=== PATIENT | female | born 1965 | race Caucasian/White ===

== ENCOUNTER 2021-01-07 19:01 | Inpatient (IN) ==
[2021-01-07] MEDS ORDERED: CLINDAMYCIN INJ 600 MG/50 ML PREMIX IV STA (19:30)
[2021-01-07 20:41] LABS: Basophils % 0.4 % (0.0-0.8); Eosinophils # 0.1 10*3/uL (0.0-0.87); Eosinophils % 2.3 % (0.00-10.9); Hemoglobin 12.4 GM/DL (12.0-16.0); Immature Granulocytes % 2.1 %; Lymphocytes # 1.7 10*3/uL (1.4-4.0); Lymphocytes % 35.4 % (21.3-54.2); Mean Corpuscular HGB Conc 30.2 GM/DL (32-36); Mean Corpuscular Volume 104.1 FL (87-102); Mean Platelet Volume 9.5 FL (9.6-12.0); Monocytes % 9.7 % (1.7-12.7); Neutrophils % 50.1 % (38.7-73.9); Platelet Count 158 T/CUMM (130-400); Red Blood Count 3.94 MC/CUMM (3.8-5.5); Red Cell Distribution Width 15.9 % (9.3-17.3); White Blood Count 4.7 T/CUMM (4-12)
[2021-01-07 20:50] LABS: Calcium 7.5 MG/DL (8.5-10.1); Osmolality,Calculated 284.1 MOS/KG (273-304); Potassium 3.9 MMOL/L (3.5-5.1)
[2021-01-07] MEDS ORDERED: guaiFENesin/DM ER 600-30 MG TABLET PO PRN (23:00)
[2021-01-07] MEDS ORDERED: hydrALAZINE 20 MG/1 ML VIAL IV PRN (23:00)
[2021-01-07] MEDS ORDERED: ONDANSETRON 4 MG/2 ML VIAL IV PRN (23:00)
[2021-01-07] MEDS ORDERED: ZALEPLON 5 MG CAPSULE PO PRN (23:00)
[2021-01-07] MEDS ORDERED: DEXTROSE 50% 25 GM/50 ML VIAL IV PRN (23:00)
[2021-01-07] MEDS ORDERED: BISACODYL 5 MG TABLET PO PRN (23:00)
[2021-01-07] MEDS ORDERED: ACETAMINOPHEN 325 MG TABLET PO PRN (23:00)
[2021-01-07] MEDS ORDERED: GLUCAGON 1 MG VIAL IM PRN (23:00)
[2021-01-07] MEDS ORDERED: NICOTINE 21 MG/24 HR PATCH TRANSDERM PRN (23:00)
[2021-01-07] MEDS ORDERED: diphenhydrAMINE CAP 25 MG CAPSULE PO PRN (23:00)
[2021-01-08] MEDS: CLINDAMYCIN INJ 600 MG/50 ML PREMIX IV SCH ×4 (02:09→22:00)
[2021-01-08 06:02] LABS: Alanine Aminotransferase 14 U/L (13-56); Albumin 2.4 G/DL (3.4-5.0); Alkaline Phosphatase 100 U/L (45-117); Aspartate Amino Transferase 17 U/L (0-37); Bilirubin,Total < 0.39 MG/DL (0.20-1.00); Blood Urea Nitrogen 15 MG/DL (7-18); Calcium 7.7 MG/DL (8.5-10.1); Carbon Dioxide 28 MMOL/L (21-32); Estimated Glom Filtration Rate 116 ML/MIN; Glucose 93 MG/DL (74-106); Osmolality,Calculated 281.3 MOS/KG (273-304); Potassium 3.5 MMOL/L (3.5-5.1); Sodium 141 MMOL/L (136-145); Total Protein 5.9 G/DL (6.4-8.2)
[2021-01-08 06:03] LABS: Basophils % 0.5 % (0.0-0.8); Eosinophils # 0.1 10*3/uL (0.0-0.87); Hematocrit 32.8 VOL% (35.7-47.0); Immature Granulocytes % 2.4 %; Immature Granulocytes Absolute 0.14 #; Lymphocytes # 2.2 10*3/uL (1.4-4.0); Mean Corpuscular HGB Conc 31.4 GM/DL (32-36); Mean Corpuscular Volume 104.1 FL (87-102); Mean Platelet Volume 9.6 FL (9.6-12.0); Monocytes % 10.2 % (1.7-12.7); Neutrophils % 47.9 % (38.7-73.9); Platelet Count 173 T/CUMM (130-400); Red Cell Distribution Width 16.3 % (9.3-17.3); White Blood Count 5.9 T/CUMM (4-12)
[2021-01-08 06:04] LABS: Hemoglobin 10.3 GM/DL (12.0-16.0); Red Blood Count 3.15 MC/CUMM (3.8-5.5)
[2021-01-08] MEDS: ENOXAPARIN 40 MG/0.4 ML SYRINGE SUBCUT SCH (09:24)
[2021-01-08] MEDS: ARIPiprazole 10 MG TABLET PO SCH (09:24)
[2021-01-08] MEDS: SERTRALINE 100 MG TABLET PO SCH (09:24)
[2021-01-08] MEDS: PANTOPRAZOLE 40 MG TABLET PO SCH (09:24)
[2021-01-08] MEDS: LEVOTHYROXINE 50 MCG TABLET PO SCH (09:25)
[2021-01-08] MEDS: FUROSEMIDE 40 MG TABLET PO SCH ×2 (09:25→22:01)
[2021-01-08] MEDS: POTASSIUM CHLORIDE 20 MEQ TABLET PO SCH ×4 (09:25→22:01)
[2021-01-08] MEDS: DIVALPROEX ER 500 MG TABLET PO SCH ×2 (09:25→22:01)
[2021-01-08] MEDS: OXYBUTYNIN 5 MG TABLET PO SCH (09:25)
[2021-01-08] MEDS: FERROUS SULFATE 325 MG TABLET PO SCH ×2 (09:25→22:01)
[2021-01-09] MEDS: CLINDAMYCIN INJ 600 MG/50 ML PREMIX IV SCH ×4 (02:25→20:31)
[2021-01-09 05:14] LABS: Basophils % 0.4 % (0.0-0.8); Eosinophils # 0.1 10*3/uL (0.0-0.87); Hematocrit 34.4 VOL% (35.7-47.0); Hemoglobin 10.3 GM/DL (12.0-16.0); Immature Granulocytes % 2.2 %; Immature Granulocytes Absolute 0.12 #; Lymphocytes # 2.4 10*3/uL (1.4-4.0); Lymphocytes % 43.3 % (21.3-54.2); Mean Corpuscular HGB Conc 29.9 GM/DL (32-36); Mean Corpuscular Volume 104.6 FL (87-102); Mean Platelet Volume 9.6 FL (9.6-12.0); Monocytes % 10.7 % (1.7-12.7); Neutrophils % 41.4 % (38.7-73.9); Platelet Count 192 T/CUMM (130-400); Red Blood Count 3.29 MC/CUMM (3.8-5.5); Red Cell Distribution Width 16.2 % (9.3-17.3); White Blood Count 5.5 T/CUMM (4-12)
[2021-01-09 05:56] LABS: Calcium 7.6 MG/DL (8.5-10.1); Osmolality,Calculated 280.3 MOS/KG (273-304); Potassium 4.3 MMOL/L (3.5-5.1)
[2021-01-09] MEDS: POTASSIUM CHLORIDE 20 MEQ TABLET PO SCH ×4 (09:52→20:32)
[2021-01-09] MEDS: PANTOPRAZOLE 40 MG TABLET PO SCH (09:52)
[2021-01-09] MEDS: DIVALPROEX ER 500 MG TABLET PO SCH ×2 (09:52→20:32)
[2021-01-09] MEDS: ENOXAPARIN 40 MG/0.4 ML SYRINGE SUBCUT SCH (09:52)
[2021-01-09] MEDS: ARIPiprazole 10 MG TABLET PO SCH (09:52)
[2021-01-09] MEDS: SERTRALINE 100 MG TABLET PO SCH (09:53)
[2021-01-09] MEDS: FUROSEMIDE 40 MG TABLET PO SCH ×2 (09:53→20:32)
[2021-01-09] MEDS: OXYBUTYNIN 5 MG TABLET PO SCH (09:53)
[2021-01-09] MEDS: LEVOTHYROXINE 50 MCG TABLET PO SCH (09:53)
[2021-01-09] MEDS: FERROUS SULFATE 325 MG TABLET PO SCH ×2 (09:53→20:33)
[2021-01-09] MEDS ORDERED: LIDOCAINE 1% 20 ML VIAL MISC INJ ONE (14:01)
[2021-01-09] MEDS: ZINC OXIDE PASTE 113 GM TUBE TOP SCH ×2 (16:02→20:33)
[2021-01-10] MEDS: CLINDAMYCIN INJ 600 MG/50 ML PREMIX IV SCH ×3 (02:58→14:03)
[2021-01-10 05:46] LABS: Basophils % 0.6 % (0.0-0.8); Eosinophils # 0.1 10*3/uL (0.0-0.87); Eosinophils % 1.9 % (0.00-10.9); Hematocrit 33.9 VOL% (35.7-47.0); Hemoglobin 10.3 GM/DL (12.0-16.0); Immature Granulocytes % 1.9 %; Lymphocytes # 2.4 10*3/uL (1.4-4.0); Lymphocytes % 46.6 % (21.3-54.2); Mean Corpuscular HGB Conc 30.4 GM/DL (32-36); Mean Corpuscular Volume 102.7 FL (87-102); Mean Platelet Volume 9.7 FL (9.6-12.0); Monocytes % 10.2 % (1.7-12.7); Neutrophils % 38.8 % (38.7-73.9); Platelet Count 181 T/CUMM (130-400); Red Cell Distribution Width 16.2 % (9.3-17.3); White Blood Count 5.2 T/CUMM (4-12)
[2021-01-10 06:16] LABS: Calcium 7.6 MG/DL (8.5-10.1); Osmolality,Calculated 285.8 MOS/KG (273-304); Potassium 3.9 MMOL/L (3.5-5.1)
[2021-01-10] MEDS ORDERED: LEVOTHYROXINE 75 MCG TABLET PO SCH (06:30)
[2021-01-10] MEDS: FERROUS SULFATE 325 MG TABLET PO SCH (09:09)
[2021-01-10] MEDS: ENOXAPARIN 40 MG/0.4 ML SYRINGE SUBCUT SCH (09:09)
[2021-01-10] MEDS: ZINC OXIDE PASTE 113 GM TUBE TOP SCH (09:10)
[2021-01-10] MEDS: ARIPiprazole 10 MG TABLET PO SCH (09:10)
[2021-01-10] MEDS: POTASSIUM CHLORIDE 20 MEQ TABLET PO SCH ×3 (09:10→16:05)
[2021-01-10] MEDS: PANTOPRAZOLE 40 MG TABLET PO SCH (09:10)
[2021-01-10] MEDS: DIVALPROEX ER 500 MG TABLET PO SCH (09:10)
[2021-01-10] MEDS: FUROSEMIDE 40 MG TABLET PO SCH (09:10)
[2021-01-10] MEDS: OXYBUTYNIN 5 MG TABLET PO SCH (09:10)
[2021-01-10] MEDS: SERTRALINE 100 MG TABLET PO SCH (09:10)
[2021-01-11 00:52] VITALS: BP 100/59
== END 2021-01-10 20:49 | disposition home health service (06) | DRG 602 ==
LOC: EDUNIT# → EDBD → N.ED 19:01 → N.EDINP 23:00 → N.3E 23:39
PROVIDERS: ADMIT Internal Medicine; ATTEND Internal Medicine

== ENCOUNTER 2022-06-22 01:07 | Inpatient (IN) ==
[2022-06-22] MEDS ORDERED: ETOMIDATE 20 MG/10 ML VIAL IV STA (01:27)
[2022-06-22] MEDS ORDERED: ROCURONIUM 100 MG/10 ML VIAL IV STA (01:28)
[2022-06-22] MEDS ORDERED: ADENOSINE 6 MG/2 ML VIAL ONE ×3 (01:37→01:45)
[2022-06-22] MEDS ORDERED: ADENOSINE 6 MG/2 ML VIAL IV STA ×2 (01:40→01:42)
[2022-06-22] MEDS ORDERED: SODIUM CHLORIDE 0.9% 1,000 ML IV STA ×3 (01:51→05:17)
[2022-06-22] MEDS ORDERED: cefTRIAXone 1,000 MG in SODIUM CHLORIDE 0.9% 100 ML IV STA (01:52)
[2022-06-22] MEDS ORDERED: NOREPINEPHRINE 4 MG/4 ML VIAL IV ONE ×2 (01:54→03:55)
[2022-06-22 02:01] LABS: Basophils % 0.4 % (0.0-0.8); Eosinophils % 0.1 % (0.00-10.9); Hemoglobin 11.6 GM/DL (12.0-16.0); Immature Granulocytes % 2.6 %; Immature Granulocytes Absolute 0.26 #; Lymphocytes # 2.3 10*3/uL (1.4-4.0); Lymphocytes % 23.1 % (21.3-54.2); Mean Corpuscular HGB Conc 27.8 GM/DL (32-36); Mean Corpuscular Volume 113.3 FL (87-102); Mean Platelet Volume 13.5 FL (9.6-12.0); Monocytes # 0.9 10*3/uL (0.11-0.8); Monocytes % 8.7 % (1.7-12.7); NRBC # 0.17 10*3/uL; Neutrophils % 65.1 % (38.7-73.9); Platelet Count 72 T/CUMM (130-400); Red Blood Count 3.68 MC/CUMM (3.8-5.5); Red Cell Distribution Width 16.9 % (9.3-17.3)
[2022-06-22] MEDS ORDERED: VANCOMYCIN INJ 1,000 MG in SODIUM CHLORIDE 0.9% 250 ML IV STA (02:01)
[2022-06-22] MEDS ORDERED: PIPERACILLIN/TAZOBACTAM 3,375 MG in SODIUM CHLORIDE 0.9% 100 ML IV STA (02:01)
[2022-06-22 02:05] LABS: Hematocrit 41.7 VOL% (35.7-47.0)
[2022-06-22] MEDS: NOREPINEPHRINE DRIP 8 MG/250 ML PREMIX IV PRN ×2 (02:05→03:47)
[2022-06-22 02:27] LABS: Arterial Base Excess iSTAT -12 MMOL/L (-2.5-2.5); Arterial Bicarbonate iSTAT 15.5 MMOL/L (20-26); Arterial O2 Saturation iSTAT 98 % (95-100); Arterial PCO2 iSTAT 39 MM HG (35-48); Arterial PO2 iSTAT 116 MM HG (80-95); Arterial Total CO2 iSTAT 17 MMO/L (23-27); Arterial pH iSTAT 7.207 (7.35-7.45)
[2022-06-22 02:31] LABS: Alanine Aminotransferase 223 U/L (13-56); Albumin 1.7 G/DL (3.4-5.0); Alkaline Phosphatase 99 U/L (45-117); Aspartate Amino Transferase 353 U/L (0-37); Blood Urea Nitrogen 39 MG/DL (7-18); Calcium 8.4 MG/DL (8.5-10.1); Carbon Dioxide 15 MMOL/L (21-32); Chloride 112 MMOL/L (98-107); Glucose 131 MG/DL (74-106); Osmolality,Calculated 287.5 MOS/KG (273-304); Sodium 139 MMOL/L (136-145); Total Protein 6.2 G/DL (6.4-8.2)
[2022-06-22 02:33] LABS: Potassium 6.6 MMOL/L (3.5-5.1)
[2022-06-22] MEDS ORDERED: SODIUM BICARBONATE 50 MEQ/50 ML VIAL IV STA ×2 (02:38→04:32)
[2022-06-22] MEDS ORDERED: INSULIN REGULAR 10 UNIT, CALCIUM GLUCONATE 1,000 MG in DEXTROSE 10% 250 ML IV ONE (02:38)
[2022-06-22] MEDS ORDERED: ETOMIDATE 20 MG/10 ML VIAL IV ONE (03:46)
[2022-06-22] MEDS ORDERED: DILTIAZEM 50 MG/10 ML VIAL IV STA (03:46)
[2022-06-22] MEDS ORDERED: ROCURONIUM 100 MG/10 ML VIAL IV ONE (03:47)
[2022-06-22 04:01] LABS: INR 1.7; PT Patient Result 17.7 SECS (10.1-12.1); Partial Thromboplastin Time 29.5 SECS (23.7-32.9)
[2022-06-22] MEDS ORDERED: DILTIAZEM 25 MG/5 ML VIAL IV ONE (04:26)
[2022-06-22] MEDS ORDERED: PHENYLEPHRINE DRIP 40 MG/250 ML PREMIX IV ONE (04:31)
[2022-06-22] MEDS ORDERED: DILTIAZEM 100 MG VIAL.ADD IV ONE (04:31)
[2022-06-22] MEDS ORDERED: PHENYLEPHRINE DRIP 40 MG/250 ML PREMIX IV PRN (04:44)
[2022-06-22] MEDS ORDERED: AMIODARONE INJ 150 MG in DEXTROSE 5% 100 ML IV ONE (04:54)
[2022-06-22] MEDS ORDERED: AMIODARONE 450 MG/9 ML VIAL IV ONE (04:59)
[2022-06-22] MEDS ORDERED: DILTIAZEM INJ 100 MG in SODIUM CHLORIDE 0.9% 100 ML IV SCH (05:00)
[2022-06-22] MEDS ORDERED: AMIODARONE INJ 450 MG in DEXTROSE 5% 241 ML IV SCH (05:00)
[2022-06-22] MEDS ORDERED: METOPROLOL TARTRATE 5 MG/5 ML VIAL IV STA (05:08)
[2022-06-22] MEDS ORDERED: MIDAZOLAM DRIP 100 MG/100 ML PREMIX IV PRN (05:09)
[2022-06-22] MEDS ORDERED: ONDANSETRON 4 MG/2 ML VIAL IV PRN (05:13)
[2022-06-22] MEDS ORDERED: ALBUTEROL 2.5 MG/3 ML NEB RESP TX PRN (05:13)
[2022-06-22] MEDS ORDERED: ALBUMIN 25% 25 GM/100 ML VIAL IV ONE (05:19)
[2022-06-22] MEDS ORDERED: MIDAZOLAM 10 MG/2 ML VIAL IV STA (05:22)
[2022-06-22] MEDS ORDERED: MIDAZOLAM 10 MG/2 ML VIAL ONE (05:22)
[2022-06-22] MEDS ORDERED: SODIUM CHLORIDE 0.9% 1,000 ML IV SCH ×2 (05:30→07:30)
[2022-06-22 05:34] LABS: Amorphous Crystals,Urine Moderate /HPF (Few); Bacteria,Urine Many /HPF (Few); Mucus,Urine Many /LPF (Occasional); RBC,Urine 12 /HPF (0-4)
[2022-06-22 05:35] LABS: Bilirubin,Urine Moderate mg/dL (Negative); Blood, Urine Trace mg/dL (Negative); Glucose,Urine (UA) Negative (Negative); Ketones,Urine Trace mg/dL (Negative); Nitrite,Urine Negative (Negative); Protein,Urine >=300 mg/dL (Negative); Urine Appearance Cloudy (Clear); Urine Color Amber (Yellow)
[2022-06-22] MEDS ORDERED: levETIRAcetam 500 MG/5 ML VIAL IV ONE (05:42)
[2022-06-22 05:52] LABS: Albumin 1.8 G/DL (3.4-5.0); Bilirubin,Total 0.9 MG/DL (0.20-1.00); Calcium 7.7 MG/DL (8.5-10.1); Potassium 3.3 MMOL/L (3.5-5.1)
[2022-06-22] MEDS ORDERED: levETIRAcetam 500 MG/5 ML VIAL IV STA (05:54)
[2022-06-22 06:13] LABS: ABG Base Excess -5.3 MMOL/L (-2.5-2.5); ABG HCO3 20.1 MMOL/L (20-26); ABG PCO2 39.4 MM HG (35-48); ABG PH 7.322 (7.35-7.45); ABG TCO2 18.9 MMOL/L (23-27)
[2022-06-22] MEDS ORDERED: SODIUM CHLORIDE 0.45% 1,000 ML IV SCH (06:30)
[2022-06-22] MEDS: ACETAMINOPHEN 325 MG TABLET PO PRN (07:00)
[2022-06-22] MEDS ORDERED: ALBUTEROL/IPRATROPIUM 3 ML NEB RESP TX SCH (07:00)
[2022-06-22 07:09] VITALS: BP 146/59
[2022-06-22 07:11] LABS: ABG HCO3 21.1 MMOL/L (20-26); ABG Oxygen Saturation 99.2 % (95-100); ABG PCO2 31.7 MM HG (35-48); ABG PH 7.406 (7.35-7.45)
[2022-06-22 07:25] LABS: Calcium 7.6 MG/DL (8.5-10.1); Osmolality,Calculated 303.6 MOS/KG (273-304); Potassium 3.1 MMOL/L (3.5-5.1)
[2022-06-22] MEDS ORDERED: PHENYLEPHRINE INJ 160 MG in SODIUM CHLORIDE 0.9% 234 ML IV PRN (07:30)
[2022-06-22] MEDS ORDERED: NOREPINEPHRINE 16 MG in SODIUM CHLORIDE 0.9% 234 ML IV PRN (07:30)
[2022-06-22] MEDS ORDERED: MEROPENEM 500 MG in SODIUM CHLORIDE 0.9% 100 ML IV SCH (08:00)
[2022-06-22] MEDS ORDERED: ACETYLCYSTEINE 600 MG CAPSULE PO SCH (08:00)
[2022-06-22] MEDS ORDERED: MORPHINE 2 MG/1 ML SYRINGE ONE (08:01)
[2022-06-22] MEDS ORDERED: LORazepam 2 MG/1 ML VIAL ONE ×3 (08:09→12:53)
[2022-06-22] MEDS: LORazepam 2 MG/1 ML VIAL IV PRN ×4 (08:13→20:18)
[2022-06-22] MEDS: MORPHINE 2 MG/1 ML SYRINGE IV PRN ×5 (08:14→20:21)
[2022-06-22] MEDS ORDERED: FAMOTIDINE 20 MG/2 ML VIAL IV SCH (09:00)
[2022-06-22] MEDS ORDERED: VANCOMYCIN INJ 1,000 MG in SODIUM CHLORIDE 0.9% 250 ML IV SCH (10:30)
[2022-06-22] MEDS ORDERED: PIPERACILLIN/TAZOBACTAM 3,375 MG in SODIUM CHLORIDE 0.9% 100 ML IV SCH (12:00)
[2022-06-22] MEDS ORDERED: VANCOMYCIN INJ 2,000 MG in SODIUM CHLORIDE 0.9% 500 ML IV SCH (16:00)
[2022-06-23] MEDS: LORazepam 2 MG/1 ML VIAL IV PRN ×3 (00:13→20:02)
[2022-06-23] MEDS: MORPHINE 2 MG/1 ML SYRINGE IV PRN ×5 (00:15→22:11)
[2022-06-23] MEDS ORDERED: ACETAMINOPHEN 650 MG SUPP RECTAL PRN (10:33)
[2022-06-23] MEDS ORDERED: LEVOFLOXACIN INJ 750 MG/150 ML PREMIX IV SCH (11:00)
[2022-06-23] MEDS: ACETAMINOPHEN 325 MG TABLET PO PRN (22:10)
[2022-06-24] MEDS: MORPHINE 2 MG/1 ML SYRINGE IV PRN ×4 (01:55→23:43)
[2022-06-24 04:36] LABS: Bilirubin,Total 0.7 MG/DL (0.20-1.00); Calcium 7.4 MG/DL (8.5-10.1); Osmolality,Calculated 308.1 MOS/KG (273-304); Potassium 3.7 MMOL/L (3.5-5.1); Total Protein 5.3 G/DL (6.4-8.2)
[2022-06-24 04:44] LABS: Basophils % 0.4 % (0.0-0.8); Eosinophils % 0.3 % (0.00-10.9); Hematocrit 27.6 VOL% (35.7-47.0); Hemoglobin 8.2 GM/DL (12.0-16.0); Immature Granulocytes Absolute 0.21 #; Lymphocytes # 2.1 10*3/uL (1.4-4.0); Lymphocytes % 29.3 % (21.3-54.2); Mean Corpuscular HGB Conc 29.7 GM/DL (32-36); Mean Corpuscular Volume 105.7 FL (87-102); Mean Platelet Volume 13.4 FL (9.6-12.0); Monocytes # 0.4 10*3/uL (0.11-0.8); Monocytes % 5.8 % (1.7-12.7); Neutrophils % 61.2 % (38.7-73.9); Platelet Count 91 T/CUMM (130-400); Red Blood Count 2.61 MC/CUMM (3.8-5.5); Red Cell Distribution Width 17.1 % (9.3-17.3); White Blood Count 7.1 T/CUMM (4-12)
[2022-06-24 05:40] LABS: Hypochromia Slight; Platelet Estimate Decreased
[2022-06-24] MEDS: ZINC OXIDE PASTE 113 GM TUBE TOP PRN (13:45)
[2022-06-24] MEDS ORDERED: FUROSEMIDE 40 MG/4 ML VIAL ONE (14:14)
[2022-06-24] MEDS ORDERED: FUROSEMIDE 40 MG/4 ML VIAL IV ONE (14:17)
[2022-06-24] MEDS: LORazepam 2 MG/1 ML VIAL IV PRN (22:40)
[2022-06-25] MEDS: MORPHINE 2 MG/1 ML SYRINGE IV PRN ×14 (03:17→23:10)
[2022-06-25 05:07] LABS: Phosphorous 2.2 MG/DL (2.5-4.9)
[2022-06-25 08:08] LABS: Albumin 2.2 G/DL (3.4-5.0); Bilirubin,Total 0.7 MG/DL (0.20-1.00); Calcium 7.5 MG/DL (8.5-10.1); Osmolality,Calculated 308.1 MOS/KG (273-304); Potassium 3.9 MMOL/L (3.5-5.1); Total Protein 5.2 G/DL (6.4-8.2)
[2022-06-25 08:20] LABS: Basophils # 0.1 10*3/uL (0.0-0.2); Basophils % 1.5 % (0.0-0.8); Eosinophils # 0.2 10*3/uL (0.0-0.87); Hematocrit 29.4 VOL% (35.7-47.0); Immature Granulocytes % 4.1 %; Immature Granulocytes Absolute 0.25 #; Lymphocytes # 1.7 10*3/uL (1.4-4.0); Lymphocytes % 28.5 % (21.3-54.2); Mean Corpuscular HGB Conc 28.6 GM/DL (32-36); Mean Corpuscular Volume 108.5 FL (87-102); Mean Platelet Volume 13.3 FL (9.6-12.0); Monocytes # 0.3 10*3/uL (0.11-0.8); Monocytes % 5.3 % (1.7-12.7); NRBC # 0.02 10*3/uL; Neutrophils % 57.6 % (38.7-73.9); Red Blood Count 2.71 MC/CUMM (3.8-5.5); Red Cell Distribution Width 16.7 % (9.3-17.3); White Blood Count 6.1 T/CUMM (4-12)
[2022-06-25 08:21] LABS: Hemoglobin 8.4 GM/DL (12.0-16.0); Platelet Count 126 T/CUMM (130-400)
[2022-06-25] MEDS: LEVOFLOXACIN INJ 750 MG/150 ML PREMIX IV SCH (08:45)
[2022-06-25] MEDS: ACETAMINOPHEN 325 MG TABLET PO PRN ×2 (09:41→23:48)
[2022-06-25] MEDS ORDERED: ALBUTEROL/IPRATROPIUM 3 ML NEB RESP TX SCH (13:00)
[2022-06-25] MEDS: LORazepam 2 MG/1 ML VIAL IV PRN ×5 (18:14→23:10)
[2022-06-26] MEDS: MORPHINE 2 MG/1 ML SYRINGE IV PRN ×11 (00:55→23:02)
[2022-06-26] MEDS: LORazepam 2 MG/1 ML VIAL IV PRN ×10 (00:55→23:02)
[2022-06-26] MEDS: LEVOFLOXACIN INJ 750 MG/150 ML PREMIX IV SCH (08:52)
[2022-06-26] MEDS ORDERED: fentaNYL 25 MCG/HR PATCH TRANSDERM SCH (09:00)
[2022-06-26] MEDS: ACETAMINOPHEN 325 MG TABLET PO PRN (09:10)
[2022-06-26] MEDS: ZINC OXIDE PASTE 113 GM TUBE TOP PRN (10:37)
[2022-06-26] MEDS ORDERED: LORazepam 2 MG/1 ML VIAL ONE ×2 (20:27→22:57)
[2022-06-27] MEDS: MORPHINE 2 MG/1 ML SYRINGE IV PRN ×9 (02:08→13:18)
[2022-06-27] MEDS ORDERED: LORazepam 2 MG/1 ML VIAL ONE ×2 (03:46→06:15)
[2022-06-27] MEDS: LORazepam 2 MG/1 ML VIAL IV PRN ×6 (03:48→13:18)
[2022-06-27] MEDS: LEVOFLOXACIN INJ 750 MG/150 ML PREMIX IV SCH (10:00)
== END 2022-06-27 13:47 | disposition hospice, inpatient (51) | DRG 871 ==
LOC: EDBD → EDUNIT# → N.ED 01:07 → N.EDINP 05:13 → SUATTDRO 05:13 → N.CC 06:21
PROVIDERS: ADMIT Internal Medicine; ATTEND Family Medicine

== ENCOUNTER 2022-06-27 13:47 | Inpatient (IN) ==
[2022-06-27] MEDS ORDERED: MORPHINE 2 MG/1 ML SYRINGE IV PRN (13:57)
[2022-06-27] MEDS ORDERED: LORazepam 2 MG/1 ML VIAL IV PRN (13:57)
[2022-06-27] MEDS ORDERED: fentaNYL 25 MCG/HR PATCH TRANSDERM SCH (14:30)
[2022-06-27] MEDS: MORPHINE 2 MG/1 ML SYRINGE IV PRN ×3 (14:44→15:40)
[2022-06-27] MEDS: LORazepam 2 MG/1 ML VIAL IV PRN ×2 (14:59→15:40)
== END 2022-06-27 15:57 | disposition expired | DRG 951 ==
LOC: N.CC 13:47
PROVIDERS: ADMIT Family Medicine; ATTEND Family Medicine